=== PATIENT | male | born 1980 | race Two or more races ===

== ENCOUNTER 2019-09-30 22:42 | Emergency (ER) | payer SELFPAY ==
[~2019-09-30] VITALS: Ht 167.6 cm; Wt 81.6 kg
[2019-09-30 23:00] VITALS: BP 130/70
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
[2019-09-30] MEDS ORDERED: HYDROcodone/Acetamin 5/325 tab ORAL ONE (23:15)
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
[2019-09-30 23:40] VITALS: BP 135/73
--- NOTE | 2019-09-30 23:40 | NUR ---
ED Nurse Note: Patient was given DC instructions by ERMD, when primary nurse brought discharge paperwork to patient, patient was not in room. patient left dc paperwork and instructions.
[2019-09-30] MEDS ORDERED: IBUPROFEN600 M1 ORAL (23:42)
== END 2019-09-30 23:40 | disposition home or self-care (01) ==
LOC: EMR 23:27
DX: S01.01XA Laceration without foreign body of scalp, initial encounter (principal); S09.90XA Unspecified injury of head, initial encounter; Y04.2XXA Assault by strike against or bumped into by another person, initial encounter; Y92.9 Unspecified place or not applicable
CPT/HCPCS: 70450; 99284